=== PATIENT | male | born 1945 | race Caucasian/White ===

== ENCOUNTER 2018-04-26 18:42 | Emergency (ER) | payer MEDICARE ==
[~2018-04-26 18:42] MED LIST: Lidocaine 1% 20 ML MDV ONE
[2018-04-26 19:19] LABS: Bilirubin Negative (Negative); Blood, Urine Trace (Negative); Glucose, Urine (Dipstick) Negative (Negative); Leukocyte Trace (Negative); Nitrite Negative (Negative); Protein, Urine (Dipstick) 30 mg/dL (Neg-Trace); Specific Gravity, Urine 1.015 (1.005-1.030); Urobilinogen 0.2 mg/dL (0.2-1.0)
[2018-04-26 19:28] LABS: Clarity Hazy (Clear)
[2018-04-26 19:29] LABS: RBC/HPF 0-3 HPF (0-3); Squamous Epithelial 0-3 HPF (0-3)
[2018-04-26 19:30] LABS: Bacteria/HPF Rare-Few HPF (None Seen); Yeast-All Forms 1+ HPF (None Seen)
[2018-04-26] MEDS ORDERED: Phenazopyridine HCl 97.5 MG TABLET ONE (19:52)
[2018-04-26] MEDS ORDERED: cefTRIAXone\\ROCEPHIN 1 GM VIAL ONE (19:52)
== END 2018-04-26 20:40 | disposition home or self-care (01) ==
LOC: MADERS 18:42
DX: N30.01 Acute cystitis with hematuria (principal); N40.0 Benign prostatic hyperplasia without lower urinary tract symptoms; I25.2 Old myocardial infarction; Z79.899 Other long term (current) drug therapy; Z79.84 Long term (current) use of oral hypoglycemic drugs; Z79.82 Long term (current) use of aspirin
CPT/HCPCS: 81001; 96372; J0696; J2001

== ENCOUNTER 2018-08-20 11:20 | Emergency (ER) | payer MEDICARE ==
[~2018-08-20 11:20] MED LIST changes: +Iopamidol 370 76% 100 ML VIAL ONE; -Lidocaine 1% 20 ML MDV ONE
[2018-08-20] MEDS ORDERED: Ondansetron PF 4 MG/2 ML Vial ONE (11:41)
[2018-08-20] MEDS ORDERED: Fentanyl 100 MCG/2 ML VIAL ONE ×3 (11:41→15:05)
[2018-08-20 12:07] LABS: #Basophils 0.1 thou/uL (0.0-0.2); #Eosinphils 0.1 thou/uL (0.0-0.7); #Lymphocytes 1.4 thou/uL (1.20-3.40); #Monocytes 0.9 thou/uL (0.11-0.59); #Neutrophils 6.8 thou/uL (1.40-6.50); %Basophils 0.9 % (0.0-1.0); %Eosinophils 0.9 % (0.0-10.0); %Neutrophils 73.2 % (42.0-75.0); Hemoglobin 12.6 g/dL (14.0-18.0); Mean Corpuscular HGB CONC 32.5 g/dL (32.0-36.0); Mean Corpuscular Hemoglobin 29.1 pg (27.0-31.0); Mean Corpuscular Volume 89.5 fL (78.0-98.0); Mean Platelet Volume 8.7 fL (7.4-10.4); Platelet Count 156 thou/uL (130-400); RBC Distribution Width 12.7 % (11.5-14.5); Red Blood Cell (RBC) Count 4.32 mill/uL (4.70-6.10); White Blood Cell (WBC) Count 9.3 thou/uL (4.8-10.8)
[2018-08-20 12:17] LABS: ALT (SGPT) 102 U/L (8-55); AST (SGOT) 136 U/L (5-34); Albumin 4.4 g/dL (3.4-4.8); Alkaline Phosphatase 51 U/L (40-150); Anion Gap 16 mmol/L (10-20); BUN (Urea Nitrogen) 15 mg/dL (8.4-25.7); Bilirubin, Total 0.4 mg/dL (0.2-1.2); Calc. Creatinine Clearance 0 mL/min (70-130); Calcium 9.5 mg/dL (7.8-10.44); Carbon Dioxide 25 mmol/L (23-31); Chloride 103 mmol/L (98-107); Estimated GFR-MDRD 87; Globulin 2.8 g/dL (2.4-3.5); Glucose 129 mg/dL (83-110); Lipase 56 U/L (8-78); Protein, Total 7.2 g/dL (5.8-8.1); Sodium 140 mmol/L (136-145)
[2018-08-20 12:30] LABS: INR-International Normal Ratio 1.1; PTT 28.8 SEC (22.9-36.1); Prothrombin Time 13.8 SEC (12.0-14.7)
--- NOTE | 2018-08-20 12:31 | CT ---
EXAM: CT brain without contrast HISTORY: Fall from ladder one hour ago with head trauma COMPARISON: None TECHNIQUE: Multiple contiguous axial images were obtained and a CT of the brain without contrast. Sag ittal and coronal reformats were performed. FINDINGS: The brain is normal in morphology and attenuation without focal lesions or confluent areas of infarction. There is no evidence of hydrocephalus, intracranial hemorrhage, or extra-axial fluid collection. The calvarium and overlying soft tissues are unremarkable. The visualized paranasal sinuses and masto id air cells are well aerated. IMPRESSION: No evidence of acute intracranial abnormality
--- NOTE | 2018-08-20 12:41 | CT ---
EXAM: CT of the cervical spine without contrast HISTORY: Head trauma with neck pain COMPARISON: None TECHNIQUE: Multiple contiguous axial images were obtained in a CT of the cervical spine without contr ast. Sagittal and coronal reformats were performed. FINDINGS: The vertebral bodies demonstrate normal height and alignment without fracture or subluxatio n. Mild degenerative changes are present. No prevertebral soft tissue swelling is seen. The posterior facets are well aligned. Normal alignment of the skull base with the cervical spine is seen. The lung apices and cervical soft tissues are unremarkable. IMPRESSION: No evidence of acute osseous abnormality of the cervical spine.
--- NOTE | 2018-08-20 12:58 | CT ---
EXAM: 1. CT of the chest with contrast 2. CT of the abdomen and pelvis with contrast 3. Limited CT of the thoracic and lumbosacral spine with contrast HISTORY: Fall from a ladder with chest pain, abdominal pain, and back pain. History of bladder cancer COMPARISON: None TECHNIQUE: 1. Multiple contiguous axial images were obtained in a CT the chest with contrast. Coronal reformats were performed. 2. Multiple contiguous axial images were obtained in a CT of the abdomen and pelvis with contrast. Co collins reformats were performed. 3. Limited CTs of the thoracic and lumbosacral spines were performed with contrast. Sagittal and tommy nal re-reformats were created based off images obtained in the chest, abdomen, and pelvic CTs. FINDINGS: CT CHEST: Mediastinum: Heart is normal in size without focal cardiac abnormality. No hilar or mediastinal lymph adenopathy. No mediastinal hemorrhage. Lungs: No focal infiltrates or nodules. Pleural space: No pneumothorax or pleural effusion. Thoracic bones: Minimally displaced right sixth and seventh rib fractures. Thoracic chest wall: Unremarkable. CT ABDOMEN/PELVIS: Peritoneum: No free air or free fluid, or stranding changes. Liver: Unremarkable. Gallbladder: Unremarkable. Adrenal glands: Unremarkable. Kidneys: Unremarkable. Spleen: Unremarkable. Pancreas: Unremarkable. Bowel: Unremarkable. Retroperitoneum: No lymphadenopathy. Atherosclerotic calcifications. Pelvis: No focal mass or abnormality. The reproductive organs are unremarkable. Pelvic bones: There are fractures of the bilateral superior and inferior pubic rami. The right superi or pubic ramus fracture extends to the acetabulum. There is also a fracture of the right iliac wing. This extends to the sacroiliac joint. Sclerotic change in the proximal aspect of both femurs li eduard represent bone infarctions. LIMITED CT OF THE THORACIC AND LUMBOSACRAL SPINE: No fracture or dislocation are seen. No prevertebral soft tissue swelling are present. Degenerative c hanges throughout the spine. IMPRESSION: 1. Right sixth and seventh rib fractures 2. No evidence of acute intra-abdominal or pelvic abnormality 3. No evidence of acute osseous abnormality of the thoracic or lumbosacral spine. 4. Pelvic fractures as described above.
--- NOTE | 2018-08-20 13:35 | RAD ---
RIGHT FEMUR: Single AP view of the right femur obtained. Two separate images obtained to include upper and lower femur. INDICATION: AP screening. Lateral views were not obtained due to pelvic fractures. FINDINGS/IMPRESSION: No fracture is seen on the single AP projection involving the right femur. There are right pelvic fr actures seen. See dedicated CT pelvis for description of the pelvic fractures. POS: OFF
== END 2018-08-20 16:12 | disposition short-term general hospital (02) ==
LOC: MADERS 11:20
DX: S22.41XA Multiple fractures of ribs, right side, initial encounter for closed fracture (principal); S32.9XXA Fracture of unspecified parts of lumbosacral spine and pelvis, initial encounter for closed fracture; S30.811A Abrasion of abdominal wall, initial encounter; E11.9 Type 2 diabetes mellitus without complications; I25.2 Old myocardial infarction; N40.0 Benign prostatic hyperplasia without lower urinary tract symptoms; W11.XXXA Fall on and from ladder, initial encounter; Z79.84 Long term (current) use of oral hypoglycemic drugs; Z79.899 Other long term (current) drug therapy
CPT/HCPCS: 36415; 70450; 71260; 72125; 74177; 80053; 83690; 85025; 85610; 85730; 86900; 86901; 96374; 96375; 96376; J2405; J3010; Q9967